=== PATIENT | female | born 1980 | race Hispanic/Latino ===

== ENCOUNTER 2024-07-08 07:26 | Day surgery (SDC) | payer OTHER ==
[2024-07-04 09:28] LABS: BASOPHILS # (AUTO) 0.04 K/uL (0.00-0.20); BASOPHILS % (AUTO) 0.5 % (0.0-5.0); EOSINOPHILS # (AUTO) 0.11 K/uL (0.00-0.70); EOSINOPHILS % (AUTO) 1.3 % (0.0-8.0); IMMATURE GRANULOCYTE ABSOLUTE 0.03 K/uL (0-1); LYMPHOCYTES # (AUTO) 2.6 K/uL (1.0-4.8); LYMPHOCYTES % (AUTO) 31.1 % (21.0-51.0); MEAN CORPUSCULAR HEMOGLOBIN 29.8 pg (27.0-33.0); MEAN CORPUSCULAR HGB CONC 33.3 g/dL (32.0-36.0); MEAN CORPUSCULAR VOLUME 89.5 fL (79-99); MONOCYTES # (AUTO) 0.4 K/uL (0.1-1.0); MONOCYTES % (AUTO) 4.2 % (3.0-13.0); NEUTROPHILS # (AUTO) 5.2 K/uL (1.8-7.7); NEUTROPHILS % (AUTO) 62.5 % (40.0-77.0); PLATELET COUNT (AUTO) 262 K/uL (130-400); RED BLOOD CELL COUNT(AUTO) 4.47 MIL/uL (4.00-5.50); RED CELL DISTRIBUTION WIDTH 12.6 % (11.0-15.5); WHITE BLOOD COUNT (AUTO) 8.2 K/uL (4.8-10.8)
[2024-07-04 09:35] LABS: APPEARANCE,URINE CLEAR (CLEAR); BILIRUBIN,URINE NEGATIVE (NEGATIVE); COLOR,URINE YELLOW (YELLOW); GLUCOSE, URINE (UA) NEGATIVE (NEGATIVE); KETONES,URINE NEGATIVE (NEGATIVE); LEUKOCYTE ESTERASE ,URINE NEGATIVE Leu/uL (NEGATIVE); NITRATE,URINE NEGATIVE (NEGATIVE); OCCULT BLOOD,URINE NEGATIVE (NEGATIVE); PH,URINE 6.5 (5.0-8.0); PROTEIN,URINE 10 mg/dL (NEGATIVE); UROBILINOGEN,URINE 0.2 mg/dL (0.2-1.0)
[2024-07-04 09:36] LABS: ADD UA MICROSCOPIC YES
[2024-07-04 09:38] LABS: INR 0.94 (0.85-1.15)
[2024-07-04 09:39] LABS: MUCUS,URINE FEW LPF (None Seen); SQUAMOUS EPITHELIAL CELL,UR MANY /HPF (0-2); WBC,URINE 0-1 /HPF (0-1)
[2024-07-04 09:40] LABS: PARTIAL THROMBOPLASTIN TIME 25.2 SEC (26.3-35.5)
[2024-07-04 09:48] VITALS: BP 131/75; PULSE 63; RESP 14; TEMP 98
[2024-07-04 10:04] LABS: BACTERIA,URINE Rare /HPF (None Seen)
--- NOTE | 2024-07-04 17:42 | HMCIMG ---
CHEST 1VW HISTORY: Preop COMPARISON: None FINDINGS: A frontal projection of the chest was obtained. No acute pulmonary infiltrates is seen. The heart is normal in size. There is dextroscoliosis. No evidence of aortic calcification is seen. IMPRESSION: 1. No acute pulmonary infiltrate is seen.
[2024-07-08] VITALS (14 sets, daily range): BP systolic 111–145; BP diastolic 55–82; PULSE 58–78; RESP 15–18; TEMP 97.3–97.9
[~2024-07-08] VITALS: Ht 157.5 cm; Wt 79.7 kg
[~2024-07-08 07:26] MED LIST: CHOL-34 PO; CHOL200059 PO; COLLAGEN PO; CYAN-52 PO; ESOM20CA51 PO; FEXO180T94 PO; FOLI1 PO; MAGN500C4 PO; SEMA1.7P SQ; SERT-440 PO; TURM500T PO
[2024-07-08 08:17] LABS: CREATININE 0.7 mg/dL (0.5-1.0); POTASSIUM 3.7 mmol/L (3.5-5.1)
[2024-07-08] MEDS: LACTATED RINGERS 1000ML 1,000 ML IV ONE (09:34)
[2024-07-08] MEDS: ceFAZolin SODIUM 2 GM VIAL ONE (09:34)
[2024-07-08] MEDS ORDERED: LIDOCAINE PF 100MG/5ML (2%) SYRINGE 5ML ONE (09:41)
[2024-07-08] MEDS ORDERED: dexaMETHasone SOD PHOSPHATE 4 MG/ML 1ML VIAL ONE (09:42)
[2024-07-08] MEDS ORDERED: ondanSETRON 4MG INJ ONE (09:42)
[2024-07-08] MEDS ORDERED: FENTanyl CITRate PF 50 MCG/1 ML 5ML AMP IV ONE (09:42)
[2024-07-08] MEDS ORDERED: GLYCOPYRROLATE 0.2 MG/ML 5 ML VIAL ONE (09:42)
[2024-07-08] MEDS ORDERED: NEOSTIGMINE METHYLSULFATE 1MG/ML IV ONE (09:42)
[2024-07-08] MEDS ORDERED: rocuRONium bROMide 10MG/1ML 5ML VL ONE (09:42)
[2024-07-08] MEDS ORDERED: proPOFol 10 MG/ML 20ML VIAL IV ONE (09:42)
[2024-07-08] MEDS ORDERED: MIDAZOLAM HCL 1 MG/ML 2ML VIAL ONE (09:43)
[2024-07-08] MEDS ORDERED: BUPIvacaine/PF 0.5% 30ML VIAL ONE (10:14)
[2024-07-08] MEDS ORDERED: INDOCYANINE GREEN 25 MG VIAL IJ ONE (10:18)
[2024-07-08] MEDS: ceFAZolin SODIUM 2 GM VIAL IVPB ONE (10:37)
[2024-07-08] MEDS ORDERED: FENTanyl CITRate PF 50 MCG/1 ML 2ML VIAL ONE (11:09)
[2024-07-08] MEDS: FENTanyl CITRate PF 50 MCG/1 ML 2ML VIAL ONE (12:19)
--- NOTE | 2024-07-08 16:59 | OP ---
Operative Note: DATE OF PROCEDURE: 07/08/24 SURGEON: DANICA PERSON MD PROCEDURE PERFORMED: Robotic cholecystectomy. PREOPERATIVE DIAGNOSIS: Symptomatic cholelithiasis, POSTOPERATIVE DIAGNOSIS: same ANESTHESIA: General endotracheal. SURGEON: Danica Person MD DEVICE LEFT IN PLACE: None. FLUIDS AND BLOOD PRODUCTS: Per anesthesia report. SPECIMENS REMOVED: Gallbladder. COMPLICATIONS: None immediate. PATIENT CONDITION: Stable. Blood loss: Minimal DESCRIPTION OF PROCEDURE: The patient was brought to the operating room and placed on the operating table in a supine position. Once general endotracheal anesthesia was achieved the patient's abdomen is prepped and draped in sterile fashion. Had then proceeded to create a transverse incision at the left upper quadrant at parker's point and under direct visualization went through the abdominal wall with a 5 mm Optiview entered the abdominal cavity and obtain a pneumoperitoneum. After obtaining pneumoperitoneum we placed under direct visualization to 8 mm trocars one in the far right flank and the other one in the right lower abdomen. I then switched out the 5 mm trocar in the left upper quadrant for 8 mm trocar. And then placed another 8 mm trocar in the left hemiabdomen to the left of the midline through the rectus muscle for the camera. Place the patient in reverse Trendelenburg and rotated to the left. Brought the robot over top of the patient right and docked the robot. There was significant amount of adhesions to the gallbladder that were taken down with the cautery with dissection. I then proceeded to retract the gallbladder from the fundus and infundibulum and started our dissection of the hilum. We bluntly dissected the hilum to expose the cystic duct and cystic artery and once we had a critical view for safety, which was confirmed with firefly technology. We proceeded to place two clips in the cystic duct proximally and distally. We divided and then did the same with our cystic artery. We then proceeded to remove the gallbladder off the liver bed using Bovie cautery. Once this was done, we then proceeded to evaluate the liver bed for hemostasis. We made sure there was no bile leaks or any bleeding. I then proceeded to bring the 5 mm Endo-Catch bag through the lateral right port. Placed the gallbladder within the bag and within the bag I proceeded to drain it. We then proceeded to remove the trocar in this area and dilated the muscle with a hemostat and proceeded to remove the gallbladder through this right lateral port. I then closed the muscle with a running 2-0 V lock suture. We then proceeded to undocked our all her instruments and the robot. Removed all the trocars from the abdominal wall confirmed no bleeding. the skin incisions were closed using 4-0 Monocryl running subcuticular fashion and Dermabond. a sterile dressing was applied. The patient tolerated the procedure well. All counts correct x2 at the end of the procedure DANICA PERSON MD Jul 08, 2024 16:58
== END 2024-07-08 13:40 | disposition home or self-care (01) ==
LOC: DAH 07:26
PROVIDERS: ATTEND Student in an Organized Health Care Education/Training Program
DX: K80.10 Calculus of gallbladder with chronic cholecystitis without obstruction (principal); F41.9 Anxiety disorder, unspecified; J45.909 Unspecified asthma, uncomplicated; Z79.01 Long term (current) use of anticoagulants; Z79.899 Other long term (current) drug therapy
CPT/HCPCS: 00790; 47563; S2900; 36415; 71045; 80048; 81001; 82948; 84703; 85025; 85610; 85730; 88304; J1100; J2003; J2250; J2405; J2704; J2710; J3010; J3490; J7030; J7120; A4215; A4221; A4222; A4223; A4335; A4600; A4649; A4657; A4663; A4930; A6260; C1769; J0665; J0690